=== PATIENT | female | born 1985 | race Caucasian/White ===

== ENCOUNTER 2016-12-07 08:48 | Emergency (ER) | payer MEDICAID ==
[2016-12-07 10:15] VITALS: BP 120/68
== END 2016-12-07 10:20 | disposition home or self-care (01) ==
LOC: ED 08:48
DX: N39.0 Urinary tract infection, site not specified (principal); R11.10 Vomiting, unspecified
CPT/HCPCS: J0696; J1885

== ENCOUNTER 2016-12-28 04:23 | Emergency (ER) | payer MEDICAID ==
[2016-12-28 07:59] VITALS: BP 97/40
== END 2016-12-28 07:59 | disposition home or self-care (01) ==
LOC: ED 04:23
DX: R07.89 Other chest pain (principal); R11.2 Nausea with vomiting, unspecified; R19.7 Diarrhea, unspecified; R50.9 Fever, unspecified
CPT/HCPCS: J1885; J7030; Q0092; Q0162